=== PATIENT | male | born 1985 | race Two or more races ===

== ENCOUNTER 2021-12-07 12:40 | Emergency (ER) | payer OTHER, SELFPAY ==
[2021-12-07 12:44] VITALS: BP 145/86; PULSE 87; RESP 16; TEMP 36.1; O2SAT 97; BMI 25.7
--- NOTE | 2021-12-07 13:45 | ED_ITS ---
HPI - Wound/Laceration General Chief Complaint: Wound/Laceration Stated Complaint: L Hand Lac 12/07/21 Time Seen by Provider: 12/07/21 13:27 Source: patient Mode of arrival: ambulatory Limitations: no limitations History of Present Illness HPI narrative: 36-year-old male who is healthy who presents with laceration to the left hand. Patient tells me he was cutting a zip tie with his pocket knife with his right hand and his hand slipped causing him to puncture the left hand. Patient is unsure of his last tetanus shot. He denies any associated weakness, numbness or tingling. Related Data Allergies Allergy/AdvReac Type Severity Reaction Status Date / Time egg [EGG] Allergy Unknown SWELLING Unverified 01/19/20 18:36 erythromycin base Allergy Unknown SWELLING Unverified 01/19/20 18:36 [From PEDIAZOLE] penicillin V Allergy Unknown Verified 03/09/13 00:00 Penicillins [PENICILLINS] Allergy Unknown SWELLING Unverified 01/19/20 18:36 Sulfa (Sulfonamide Allergy Unknown SWELLING Unverified 01/19/20 18:36 Antibiotics) [SULFA (SULFONAMIDE ANTIBIOTICS)] sulfisoxazole Allergy Unknown SWELLING Unverified 01/19/20 18:36 [From PEDIAZOLE] Pediazole Allergy Unknown Uncoded 03/09/13 00:00 Review of Systems Review of Systems: Yes all other systems are reviewed and are negative Constitutional: Constitutional: Reports no additional constitutional complaints, Denies body ache(s), Denies chills, Denies fever(s), Denies headache(s) and Denies weakness Eyes: Eyes: Reports no additional eye complaints and Denies change in vision ENT: Reports system reviewed and no additional complaints, except as documented, Denies dizziness, Denies headache(s), Denies nasal congestion, Denies nasal discharge and Denies neck pain Cardiovascular: Cardiovascular: Reports no additional cardiovascular complaints, Denies chest pain, Denies leg edema and Denies dyspnea Respiratory: Respiratory: Reports no additional respiratory complaints, Denies cough and Denies dyspnea Gastrointestinal: Gastrointestinal: Reports no additional gastrointestinal c omplaints, Denies abdominal pain, Denies diarrhea, Denies nausea and Denies vomiting Genitourinary: Genitourinary: Denies urinary incontinence Musculoskeletal: Musculoskeletal: Reports no additional musculoskeletal complaints, Denies back pain, Denies arthralgias, Denies joint swelling, Denies neck pain, Denies numbness and Denies tingling Integumentary/Breasts: Skin/Breast: Reports system reviewed and no additional complaints, except as docu and Denies rash Comments: +lac Neurologic: Reports system reviewed and no additional complaints, except as documented, Denies Abnormal speech present, Denies dizziness, Denies headache(s), Denies numbness, Denies tingling and Denies weakness PMFSH Past Medical History Attestation statement: The following information was validated with the patient. Source: old records reviewed and nursing notes reviewed Social History Social History Advance Directives: No Advance Directives Information Provided: No Physical Exam Vital Signs: Vital Signs: Last Vital Signs Temp 96.9 F 12/07/21 12:44 Pulse 87 12/07/21 12:44 Resp 16 12/07/21 12:44 BP 145/86 H 12/07/21 12:44 Pulse Ox 97 12/07/21 12:44 O2 Del Method 12/07/21 12:44 BMI result Body Mass Index 25.7 Const: General: cooperative, healthy appearing, comfortable and no acute distress Orientation/consciousness: patient oriented x3 Limitations: no limitations HEENT: Head: Yes normal to inspection Ears: hearing grossly normal bilaterally General nose exam: Normal external nose present Face and sinus: Yes normal facial exam Mouth: Normal oral and palatal mucosa present Throat: Yes posterior oropharynx normal Eyes: General: appearance normal, both eyes and all related structures Pupils: Equal, round and reactive pupils present Neck: Neck: Yes normal visual inspection Chest: Chest palpation & inspection: normal inspection of the chest Resp: Effort & Inspection: normal respiratory effort Auscultation: clear to auscultation bilaterally Cardio: Rate: regular rate Rhythm: regular rhythm Peripheral pulses: Peripheral pulses 2+ throughout GI: Inspection: Yes normal to inspection Palpation (GI): Soft to palpation and nontender Auscultation: normal bowel sounds Back/Spine/Pelvis: Thoracic/Lumbar Spine: thoracic and lumbar spine normal to inspection Skin: General skin exam: no rashes or lesions noted Neuro: General: patient oriented x3, no focal motor deficits and normal sensation to monofilament Cranial nerves: Yes Equal, round and reactive pupils present Cognition (Neuro): normal cognition Speech: No Abnormal speech present Gait exam (Neuro): Normal gait present Motor exam (neuro): 5/5 motor strength present throughout Extrem: General: Yes normal to inspection Hand/finger images: 1. 1 cm laceration. Bleeding is controlled. Full range of motion of the hands and fingers. Sensation is intact distally. Course Course Course Narrative: The wound was cleansed with normal saline 2 L and Betadine. The patient received a tetanus booster. The wound was closed with skin glue and Steri- Strips. Patient has full range of motion of the hand and associated digit and is neurovascularly intact distally. Reviewed worrisome signs and symptoms of when to return to the emergency department. Comfortable discharge home. . MDM - Wound/Laceration MDM Narrative Medical decision making narrative: 36-year-old male here with laceration to the left hand from his pocket knife. Medical Records Attestation: I reviewed the patient's medical records. Lab Data Attestation: I reviewed the patient's lab results. Discharge Plan Discharge Clinical Impression: Laceration Patient Disposition: Home, Self-Care Instructions: Laceration (ED) Referrals: Eben Kaur MD [Primary Care Provider] - Interventions: ED Discharge Assessment Last Done: 12/07/21 14:07 Discharge Date/Time: 12/07/21 14:08
[2021-12-07] MEDS: Diphth,Pertus(ACell),Tet Adult 0.5 ML SYRINGE IM (13:50)
== END 2021-12-07 14:08 | disposition home or self-care (01) ==
PROVIDERS: Emergency Provider Emergency Medicine; PCP Internal Medicine
DX: S61.412A Laceration without foreign body of left hand, initial encounter (principal); W26.0XXA Contact with knife, initial encounter; Y93.89 Activity, other specified; Y92.039 Unspecified place in apartment as the place of occurrence of the external cause; Y99.9 Unspecified external cause status
CPT/HCPCS: 90471; 90715; 99282; 99284